=== PATIENT | male | born 1945 | race Caucasian/White ===

== ENCOUNTER 2017-12-28 06:33 | Day surgery (SDC) | payer MEDICARE, MEDICAID ==
[2017-12-26 10:31] LABS: BASOPHILS % (AUTO) 0.5 % (0-1); EOSINOPHILS # (AUTO) 0.1 X10'3 (0-0.9); EOSINOPHILS % (AUTO) 1.6 % (0-6); LYMPHOCYTES % (AUTO) 26.6 % (21-51); MEAN CORPUSCULAR HEMOGLOBIN 34.5 PG (27.0-31.0); MEAN CORPUSCULAR HGB CONC 34.7 % (33.0-36.5); MEAN CORPUSCULAR VOLUME 99.5 FL (78-98); MEAN PLATELET VOLUME 7.7 FL (7.4-10.4); MONOCYTES # (AUTO) 0.9 X10'3 (0-0.9); MONOCYTES % (AUTO) 12.1 % (2-12); NEUTROPHILS # (AUTO) 4.5 X10'3 (1.8-7.7); NEUTROPHILS % (AUTO) 59.2 % (42-75); PRE OP HEMATOCRIT 47.4 % (42.0-52.0); PRE OP HEMOGLOBIN 16.5 g/dL (14.0-17.9); PRE OP PLATELET COUNT 222 X10'3 (140-440); RED BLOOD COUNT 4.77 X10'6 (4.70-6.10); RED CELL DISTRIBUTION WIDTH 14.1 % (11.5-14.5)
[2017-12-26 10:35] LABS: CLARITY,URINE CLEAR (Clear); COLOR,URINE YELLOW (Yellow); GLUCOSE, URINE NEGATIVE (Neg); KETONES,URINE NEGATIVE (Neg); LEUKOCYTE ESTERASE ,URINE NEGATIVE (Neg); NITRITES, URINE NEGATIVE (Neg); OCCULT BLOOD,URINE NEGATIVE (Neg); PH,URINE 5.5 (4.8-8.0); PROTEIN,URINE NEGATIVE (Neg); UROBILINOGEN,URINE 0.2 E.U/dL (0.2-1.0)
[2017-12-26 10:36] LABS: UA COLLECTION TYPE CLN CATCH MIDSTREAM
[2017-12-26 10:46] LABS: ALBUMIN 3.5 G/DL (3.4-5.0); ALBUMIN/GLOBULIN RATIO 0.8 (1.1-1.5); ALKALINE PHOSPHATASE 107 IU/L (46-116); BLOOD UREA NITROGEN 15 MG/DL (7-18); BUN/CREATININE RATIO 13.4 (5.4-32.0); CALCIUM 8.9 MG/DL (8.5-10.1); CHLORIDE 102 MMOL/L (99-107); CREATININE 1.12 MG/DL (0.60-1.10); PRE OP ALT 50 U/L (30-65); PRE OP ANION GAP 5 (8-16); PRE OP AST 53 U/L (10-37); PRE OP GLUCOSE 122 MG/DL (70-104); PRE OP POTASSIUM 4.3 MMOL/L (3.4-5.1); PRE OP SODIUM 140 MMOL/L (135-145); TOTAL CARBON DIOXIDE 32.8 MMOL/L (24-32); TOTAL PROTEIN 7.9 G/DL (6.4-8.2); eGFR 65 ML/MIN
[2017-12-28] VITALS (10 sets, daily range): BP systolic 107–160; BP diastolic 51–90
[~2017-12-28] VITALS: Ht 175.3 cm; Wt 83.0 kg
[~2017-12-28 06:33] MED LIST: ALBU18HF2 INH; ASCO500C15 PO; CYAN100087 PO; ENAL10TA78 PO; FURO20TA4 PO; GABA-530 PO; MULT-1141 PO; SPIR50TA3 PO; TADA5TAB2 PO; THIA100T70 PO; VITA-268 PO; ceFAZolin inj. 2,000 MG in normal saline 100ml IV soln 100 ML IV ONE; cefazolin/dext.iso 2gm/50ml 50 ML IV ONE; famotidine 20mg tablet PO ONE; ringers solution, lacted 1,000 ML IV SCH
[2017-12-28] MEDS ORDERED: BUPIVAcaine/PF 2.5 mg/ml (0.25%) 30ml vial ONE ×2 (06:40→09:17)
[2017-12-28] MEDS ORDERED: ceFAZolin 1000mg inj ONE ×3 (06:40→09:17)
[2017-12-28] MEDS ORDERED: LIDOcaine 1% (10mg/ml) 2ml vial ONE (06:50)
[2017-12-28] MEDS ORDERED: midazolam 2 mg/2 ml injection ONE (09:59)
[2017-12-28] MEDS ORDERED: propofol inj 20 ML IV ONE (10:24)
[2017-12-28] MEDS ORDERED: fentaNYL /PF 50mcg/ml 5ml ampule ONE (10:25)
[2017-12-28] MEDS ORDERED: rocuronium 10mg/ml inj IV ONE (10:26)
[2017-12-28 10:33] LABS: PROTHROMBIN TIME 10.6 SECONDS (9.0-12.0)
[2017-12-28] MEDS ORDERED: phenylephrine 10mg/ml inj IV ONE ×3 (10:51)
[2017-12-28] MEDS ORDERED: ePHEDrine 50MG/ML INJ. ONE (10:53)
[2017-12-28] MEDS ORDERED: ringers solution, lacted 1,000 ML IV SCH (11:04)
[2017-12-28] MEDS ORDERED: fentaNYL/PF 50MCG/1 ML 2ML syringe IV PRN ×2 (11:05)
[2017-12-28] MEDS ORDERED: HYDROmorphone inj. 0.5 MG/0.5 ML DISP.SYRIN IV PRN ×2 (11:05)
[2017-12-28] MEDS ORDERED: proCHLORperazine 10 MG/2 ml inj IV PRN (11:05)
[2017-12-28] MEDS ORDERED: ketorolac tromethamine 15mg/ml inj. IV ONE (11:05)
[2017-12-28] MEDS ORDERED: ondansetron/PF 4mg/2ml inj IV PRN (11:05)
[2017-12-28] MEDS ORDERED: dexamethasone sod phosphate 4mg/ml inj. ONE (11:08)
[2017-12-28] MEDS ORDERED: ondansetron/PF 4mg/2ml inj ONE (11:08)
[2017-12-28] MEDS ORDERED: neostigmine methylsulfate 1 MG/ML 10ml vial ONE (11:12)
[2017-12-28] MEDS ORDERED: glycopyrrolate 0.2mg/ml inj ONE (11:12)
[2017-12-28] MEDS ORDERED: mineral oil/petrolatum ophthal oint ONE (11:16)
== END 2017-12-28 13:39 | disposition home or self-care (01) ==
LOC: PAS 06:33
PROVIDERS: ATTEND Surgery
DX: K42.9 Umbilical hernia without obstruction or gangrene (principal); K70.31 Alcoholic cirrhosis of liver with ascites; B19.20 Unspecified viral hepatitis C without hepatic coma; K76.0 Fatty (change of) liver, not elsewhere classified; J44.9 Chronic obstructive pulmonary disease, unspecified; I10 Essential (primary) hypertension; F10.20 Alcohol dependence, uncomplicated; F15.90 Other stimulant use, unspecified, uncomplicated; Z96.612 Presence of left artificial shoulder joint; Z98.890 Other specified postprocedural states; Z79.899 Other long term (current) drug therapy
CPT/HCPCS: 36415; 47000; 49652; 80053; 81003; 85025; 85610; 93005; 93306; A6255; A6258; C1758; C1781; J0690; J1100; J1885; J2250; J2370; J2405; J2704; J2710; J3010; J3490; J7030; J7120; 88307; 88313; A7000